=== PATIENT | female | born 1965 | race Caucasian/White ===

== ENCOUNTER → 2017-01-02 | Outpatient (CLI) | payer MEDICARE, MEDICAID ==
[~2017-01-02] MED LIST: *MAYHAVE; /AUGM875TA; /CIPR75TA PO; /FEXO18TA; /INSU7030; /INSUREG; /LINE60TA; ACET1TAB17 PO; ACET50TA PO; ACET65TA; ACET65TA PO; ALBU83IN INH; ALBUTEROL NEBULIZER NEB; ATEN50TA2; AUG875 PO; BACTDSTA PO; BUDE150T; BUDE300T; CEFA1INJ5 IV; CEFA1VL IM; CETI10TA PO; CHRO200T3 PO; CINN500C9 PO; CLAR1TAB2 PO; CLAR5CHW; DIFL150T PO; DIGO0.25 PO; DOXY-278 PO; EUCECRE2 TOP; EUCELOT2; FISH100035 PO; FISH120012 PO; FISH5CAP PO; FLEEENE4 PR; GLUC1000; GLUC1000 OR; HEPA100I14 IV; HEPA100PFS IV; HEPARIN FLUSH; HUMUINJ; HUMUINJ SC; HUMULIN R; HUMULIN R SC; INSULANT; INSULANT SC; INSULIN 70/30; INSULIN LANTUS; INSURSD SC; INVANZ; IPRA2IN INH; ISOS30BRAN; JANUVIA; LANO0.252 PO; LANO250T15 PO; LASI40TA; LASI40TA OR; LASI40TA PO; LASI80TA; LEVAQUIN; LEVO750T PO; LISI2.5T3 PO; LISI20TA5; LISI40TA; LISI40TA OR; LOPR1TAB6 PO; LORA10TA2 PO; LORATADINE; LOTRCRE; MAG400TA PO; MAGN400T5 PO; MAGN500T2 PO; METO50TA2 PO; METO50TA7 PO; MILKSUS PO; MULTTAB4 PO; NOVO70VL; NOVOLIN N; NOVOLOG100 MG/ML; NYST1000 PO; PAIN325T PO; POTA20TA2 OR; PRAD150C PO; ROCE1INJ4 IV; SALI0.9I2 IV; SIMV80TA OR; TENO25TA PO; TENORETIC 50/25 OR; TRIA1CR TOP; TYLE325T5 PO; VICO5TAB; VITA100066 PO; VITA1CAP40 PO; VITMTA PO; ZEST1TAB4 PO; ZETI10TA; ZITH250T; ZOCO40TA PO; ZOCO80TA; ZYVO100T PO; ZYVOX PO; januvia
[2017-01-02 14:13] LABS: ALBUMIN/GLOBULIN RATIO 1.18 (1.00-1.93); BILIRUBIN,TOTAL 0.6 MG/DL (0.2-1.0); CALCIUM LEVEL 9.6 MG/DL (8.5-10.1); CREATININE FOR GFR 1.2 MG/DL (0.55-1.02); DIGOXIN LEVEL 1.1 NG/ML (0.5-2.0); GLOMERULAR FILTRATION RATE 50.4 (>51); POTASSIUM SERUM 3.8 MEQ/L (3.5-5.1); TOTAL PROTEIN 7.4 GM/DL (6.4-8.2)
== END ==
LOC: M WUC 08:32
PROVIDERS: ATTEND Nurse Practitioner Adult Health
DX: E11.42 Type 2 diabetes mellitus with diabetic polyneuropathy (principal); I10 Essential (primary) hypertension; E78.2 Mixed hyperlipidemia; E55.9 Vitamin D deficiency, unspecified
CPT/HCPCS: 36415; 80053; 80061; 80162; 82043; 82306; 83036; G0463

== ENCOUNTER → 2017-07-28 | Outpatient (REF) | payer OTHER ==
[2017-07-28 12:11] LABS: ESTIMATED AVERAGE GLUCOSE 183 MG/DL (60-110)
[2017-07-28 12:14] LABS: TOTAL 25(OH) VITAMIN D 26.7 NG/ML (30.0-100.0)
[2017-07-28 12:25] LABS: ALBUMIN 3.4 GM/DL (3.2-5.2); ALKALINE PHOSPHATASE 118 U/L (45-117); ALT/SGPT 41 U/L (12-78); ANION GAP 8 MEQ/L (8-16); AST/SGOT 25 U/L (7-37); BILIRUBIN,TOTAL 0.5 MG/DL (0.2-1.0); BLOOD UREA NITROGEN 18 MG/DL (7-18); CALCIUM LEVEL 9.5 MG/DL (8.5-10.1); CARBON DIOXIDE LEVEL 30 MEQ/L (21-32); CHLORIDE LEVEL 103 MEQ/L (98-107); CHOLESTEROL LEVEL 143 MG/DL (<200); CHOLESTEROL RISK RATIO 3.763 (<5); GLOMERULAR FILTRATION RATE > 60.0 (>51); GLUCOSE, FASTING 113 MG/DL (70-100); HDL CHOLESTEROL 38 MG/DL (>40); NON-HDL-C 105 MG/DL; SODIUM LEVEL 141 MEQ/L (136-145); TOTAL PROTEIN 6.5 GM/DL (6.4-8.2); TRIGLYCERIDES LEVEL 210 MG/DL (<150)
[2017-07-28 12:32] LABS: MAU/CREAT RATIO 67.7 MCG/MG (0.0-30.0)
== END ==
LOC: M SFHCPLAZ 08:06
DX: E11.42 Type 2 diabetes mellitus with diabetic polyneuropathy (principal); E55.9 Vitamin D deficiency, unspecified; E78.2 Mixed hyperlipidemia; I48.0 Paroxysmal atrial fibrillation; E83.42 Hypomagnesemia
CPT/HCPCS: 80162

== ENCOUNTER 2017-08-27 13:53 | Inpatient (IN) | payer MEDICARE, MEDICAID, OTHER ==
[2017-08-27 16:12] LABS: BASO # 0.1 10^3/uL (0.0-0.2); BASO % 0.3 % (0.0-1.0); EOS # 0.1 10^3/uL (0.0-0.50); EOS % 0.3 % (0.0-3.0); HEMATOCRIT 37.3 % (36.0-47.0); HEMOGLOBIN 12.6 g/dl (12.0-16.0); IMMATURE GRANULOCYTE % 0.9 % (0-3.0); LYMPH # 2.1 10^3/uL (1.5-4.5); LYMPH % 7.3 % (24.0-44.0); MEAN CORPUSCULAR HEMOGLOBIN 28.6 pg (27.0-33.0); MEAN CORPUSCULAR HGB CONC 33.8 g/dl (32.0-36.5); MEAN CORPUSCULAR VOLUME 84.6 fl (80.0-96.0); MONO # 1.6 10^3/uL (0.0-0.8); MONO % 5.5 % (0.0-5.0); NEUTROPHILS % 85.7 % (36.0-66.0); PLATELET COUNT, AUTOMATED 289 10^3/uL (150-450); RED BLOOD COUNT 4.41 10^6/uL (4.00-5.40); RED CELL DISTRIBUTION WIDTH 13.9 % (11.5-14.5); WHITE BLOOD COUNT 29.4 10^3/uL (4.0-10.0)
[2017-08-27 16:22] LABS: INR 1.08; PROTHROMBIN TIME 14.2 SECONDS (12.4-14.5)
[2017-08-27 16:23] LABS: PARTIAL THROMBOPLASTIN TIME 21.5 SECONDS (26.8-37.9)
[2017-08-27 16:31] LABS: NEUTROPHILS # 25.2 10^3/uL (1.8-7.7); POSITIVE DIFF POS FLAG
[2017-08-27] MEDS: ONDANSETRON 4MG/2ML VIAL (J2405) IV (16:31)
[2017-08-27] MEDS: NS 1,000 ML IV (16:32)
[2017-08-27 16:35] LABS: ANION GAP 8 MEQ/L (8-16); BLOOD UREA NITROGEN 15 MG/DL (7-18); CALCIUM LEVEL 9.3 MG/DL (8.5-10.1); CARBON DIOXIDE LEVEL 28 MEQ/L (21-32); CHLORIDE LEVEL 100 MEQ/L (98-107); CREATININE FOR GFR 1.06 MG/DL (0.55-1.30); GLUCOSE, FASTING 157 MG/DL (70-100); POTASSIUM SERUM 4.3 MEQ/L (3.5-5.1); SODIUM LEVEL 136 MEQ/L (136-145)
[2017-08-27 17:06] LABS: LACTIC ACID SEPSIS PROTOCOL 1.3 MMOL/L (0.4-2.0)
[2017-08-27 18:10] LABS: ERYTHROCYTE SEDIMENTATION RATE 64 mm/hr (0-30)
[2017-08-27] MEDS: LIDOCAINE W/EPINEPHRINE 1% 20ML VIAL SC (19:45)
[2017-08-27] MEDS: HumaLOG INSULIN (NovoLOG) PER UNIT SC (21:00)
[2017-08-27] MEDS: SENOKOT S TAB PO (21:00)
[2017-08-27] MEDS: MEROPENEM INJ 1 GM in APPROPRIATE DILUENT 1 EA IV (21:44)
[2017-08-27] MEDS: LINEZOLID 600 MG in APPROPRIATE DILUENT 1 EA IV (22:39)
[2017-08-27] MEDS ORDERED: GLUCAGON FOR INJ 1 MG VIAL (J1610) SC (23:00)
[2017-08-27] MEDS ORDERED: DEXTROSE 50% 50 ML SYRINGE IV (23:00)
[2017-08-27] MEDS ORDERED: ACETAMINOPHEN TAB 650MG DOSE (2X325MG) PO (23:00)
[2017-08-27] MEDS ORDERED: GLUCOSE 4 GM CHEW TABLET PO (23:00)
[2017-08-27] MEDS ORDERED: PERCOCET 5MG/325MG TAB PO (23:00)
[2017-08-27] MEDS ORDERED: ONDANSETRON 4MG/2ML VIAL (J2405) IV (23:00)
[2017-08-27 23:32] LABS: BEDSIDE GLUCOSE 173 MG/DL (70-105)
[2017-08-28] MEDS: DABIGATRAN ETEXILATE 75 MG CAP (PRADAXA) PO ×3 (00:10→21:40)
[2017-08-28] MEDS: METOPROLOL TART 50 MG TAB PO ×3 (00:11→21:40)
[2017-08-28] MEDS: SIMVASTATIN 40 MG TAB PO ×2 (00:11→21:40)
[2017-08-28] MEDS: LEVEMIR (INSULIN DETEMIR) 1 UNITS/0.01ML SC ×3 (00:12→21:43)
[2017-08-28 06:20] LABS: HEMATOCRIT 32.7 % (36.0-47.0); MEAN CORPUSCULAR HEMOGLOBIN 28.3 pg (27.0-33.0); MEAN CORPUSCULAR HGB CONC 33.6 g/dl (32.0-36.5); MEAN CORPUSCULAR VOLUME 84.1 fl (80.0-96.0); PLATELET COUNT, AUTOMATED 242 10^3/uL (150-450); RED BLOOD COUNT 3.89 10^6/uL (4.00-5.40); WHITE BLOOD COUNT 21.4 10^3/uL (4.0-10.0)
[2017-08-28 06:37] LABS: ANION GAP 6 MEQ/L (8-16); BLOOD UREA NITROGEN 14 MG/DL (7-18); CALCIUM LEVEL 8.5 MG/DL (8.5-10.1); CARBON DIOXIDE LEVEL 27 MEQ/L (21-32); CHLORIDE LEVEL 103 MEQ/L (98-107); CREATININE FOR GFR 0.85 MG/DL (0.55-1.30); GLOMERULAR FILTRATION RATE > 60.0 (>51); GLUCOSE, FASTING 125 MG/DL (70-100); MAGNESIUM LEVEL 2.2 MG/DL (1.8-2.4); POTASSIUM SERUM 3.6 MEQ/L (3.5-5.1); SODIUM LEVEL 136 MEQ/L (136-145)
[2017-08-28] MEDS: SENOKOT S TAB PO ×2 (09:00→21:00)
[2017-08-28] MEDS: CEFTAROLINE FOSAMIL 600 MG in D5W MINI-BAG PLUS 50 ML IV ×2 (09:43→21:42)
[2017-08-28] MEDS: HumaLOG INSULIN (NovoLOG) PER UNIT SC ×4 (09:44→21:00)
[2017-08-28] MEDS: VITAMIN D 1,000 INTERNATIONAL UNITS TABLET PO (09:44)
[2017-08-28] MEDS: LISINOPRIL *2.5 MG* TAB PO (09:45)
[2017-08-28] MEDS: MULTIVITAMINS/MINERALS THERAP 1 TAB PO (09:46)
[2017-08-28] MEDS: DIGOXIN 0.25 MG TAB PO (09:46)
[2017-08-28 12:14] LABS: BEDSIDE GLUCOSE 137 MG/DL (70-105)
[2017-08-28 21:03] LABS: BEDSIDE GLUCOSE 98 MG/DL (70-105)
[2017-08-28 21:04] LABS: BEDSIDE GLUCOSE 126 MG/DL (70-105)
[2017-08-29 06:01] LABS: HEMATOCRIT 33.1 % (36.0-47.0); HEMOGLOBIN 10.9 g/dl (12.0-15.5); MEAN CORPUSCULAR HEMOGLOBIN 27.9 pg (27.0-33.0); MEAN CORPUSCULAR HGB CONC 32.9 g/dl (32.0-36.5); MEAN CORPUSCULAR VOLUME 84.7 fl (80.0-96.0); PLATELET COUNT, AUTOMATED 252 10^3/uL (150-450); RED BLOOD COUNT 3.91 10^6/uL (4.00-5.40); RED CELL DISTRIBUTION WIDTH 13.9 % (11.5-14.5); WHITE BLOOD COUNT 17.4 10^3/uL (4.0-10.0)
[2017-08-29 06:24] LABS: ANION GAP 4 MEQ/L (8-16); BLOOD UREA NITROGEN 15 MG/DL (7-18); CALCIUM LEVEL 8.5 MG/DL (8.5-10.1); CARBON DIOXIDE LEVEL 29 MEQ/L (21-32); CHLORIDE LEVEL 106 MEQ/L (98-107); CREATININE FOR GFR 0.83 MG/DL (0.55-1.30); GLOMERULAR FILTRATION RATE > 60.0 (>51); GLUCOSE, FASTING 91 MG/DL (70-100); MAGNESIUM LEVEL 2.2 MG/DL (1.8-2.4); POTASSIUM SERUM 3.7 MEQ/L (3.5-5.1); SODIUM LEVEL 139 MEQ/L (136-145)
[2017-08-29] MEDS: HumaLOG INSULIN (NovoLOG) PER UNIT SC ×4 (07:30→21:00)
[2017-08-29] MEDS: SENOKOT S TAB PO ×2 (09:00→22:05)
[2017-08-29] MEDS: DIGOXIN 0.25 MG TAB PO (09:38)
[2017-08-29] MEDS: METOPROLOL TART 50 MG TAB PO ×2 (09:39→22:04)
[2017-08-29] MEDS: LISINOPRIL *2.5 MG* TAB PO (09:39)
[2017-08-29] MEDS: LEVEMIR (INSULIN DETEMIR) 1 UNITS/0.01ML SC ×2 (09:40→22:06)
[2017-08-29] MEDS: MULTIVITAMINS/MINERALS THERAP 1 TAB PO (09:40)
[2017-08-29] MEDS: DABIGATRAN ETEXILATE 75 MG CAP (PRADAXA) PO ×2 (09:40→22:03)
[2017-08-29] MEDS: VITAMIN D 1,000 INTERNATIONAL UNITS TABLET PO (09:40)
[2017-08-29] MEDS: CEFTAROLINE FOSAMIL 600 MG in D5W MINI-BAG PLUS 50 ML IV ×2 (09:40→22:04)
[2017-08-29] MEDS: SIMVASTATIN 40 MG TAB PO (22:03)
[2017-08-30 06:15] LABS: HEMATOCRIT 35.5 % (36.0-47.0); HEMOGLOBIN 11.6 g/dl (12.0-15.5); MEAN CORPUSCULAR HEMOGLOBIN 27.8 pg (27.0-33.0); MEAN CORPUSCULAR HGB CONC 32.7 g/dl (32.0-36.5); MEAN CORPUSCULAR VOLUME 84.9 fl (80.0-96.0); PLATELET COUNT, AUTOMATED 324 10^3/uL (150-450); RED BLOOD COUNT 4.18 10^6/uL (4.00-5.40); RED CELL DISTRIBUTION WIDTH 13.8 % (11.5-14.5); WHITE BLOOD COUNT 21.5 10^3/uL (4.0-10.0)
[2017-08-30 06:28] LABS: ANION GAP 6 MEQ/L (8-16); BLOOD UREA NITROGEN 18 MG/DL (7-18); CARBON DIOXIDE LEVEL 27 MEQ/L (21-32); CHLORIDE LEVEL 105 MEQ/L (98-107); CREATININE FOR GFR 0.86 MG/DL (0.55-1.30); GLOMERULAR FILTRATION RATE > 60.0 (>51); GLUCOSE, FASTING 90 MG/DL (70-100); MAGNESIUM LEVEL 2.2 MG/DL (1.8-2.4); POTASSIUM SERUM 3.9 MEQ/L (3.5-5.1); SODIUM LEVEL 138 MEQ/L (136-145)
[2017-08-30] MEDS: HumaLOG INSULIN (NovoLOG) PER UNIT SC ×4 (07:30→21:00)
[2017-08-30 08:45] LABS: BEDSIDE GLUCOSE 133 MG/DL (70-105)
[2017-08-30 08:45] LABS: BEDSIDE GLUCOSE 103 MG/DL (70-105)
[2017-08-30 08:45] LABS: BEDSIDE GLUCOSE 106 MG/DL (70-105)
[2017-08-30] MEDS: LEVEMIR (INSULIN DETEMIR) 1 UNITS/0.01ML SC ×2 (11:00→21:55)
[2017-08-30] MEDS: MULTIVITAMINS/MINERALS THERAP 1 TAB PO (11:01)
[2017-08-30] MEDS: LISINOPRIL *2.5 MG* TAB PO (11:01)
[2017-08-30] MEDS: METOPROLOL TART 50 MG TAB PO ×2 (11:01→21:55)
[2017-08-30] MEDS: SENOKOT S TAB PO ×2 (11:02→21:00)
[2017-08-30] MEDS: DABIGATRAN ETEXILATE 75 MG CAP (PRADAXA) PO ×2 (11:02→21:56)
[2017-08-30] MEDS: VITAMIN D 1,000 INTERNATIONAL UNITS TABLET PO (11:02)
[2017-08-30] MEDS: DIGOXIN 0.25 MG TAB PO (11:03)
[2017-08-30] MEDS: CEFTAROLINE FOSAMIL 600 MG in D5W MINI-BAG PLUS 50 ML IV ×2 (11:03→21:56)
[2017-08-30] MEDS: LIDOCAINE 1% MDV 20ML VIAL SC (11:15)
[2017-08-30 11:36] LABS: BEDSIDE GLUCOSE 125 MG/DL (70-105)
[2017-08-30] MEDS: SIMVASTATIN 40 MG TAB PO (21:55)
[2017-08-31 06:22] LABS: HEMATOCRIT 34.2 % (36.0-47.0); MEAN CORPUSCULAR HEMOGLOBIN 27.4 pg (27.0-33.0); MEAN CORPUSCULAR HGB CONC 32.2 g/dl (32.0-36.5); MEAN CORPUSCULAR VOLUME 85.3 fl (80.0-96.0); PLATELET COUNT, AUTOMATED 323 10^3/uL (150-450); RED BLOOD COUNT 4.01 10^6/uL (4.00-5.40); RED CELL DISTRIBUTION WIDTH 13.9 % (11.5-14.5); WHITE BLOOD COUNT 18.4 10^3/uL (4.0-10.0)
[2017-08-31 06:41] LABS: ANION GAP 4 MEQ/L (8-16); BLOOD UREA NITROGEN 16 MG/DL (7-18); C REACTIVE PROTEIN QUANTITATIV 8.72 MG/DL (0.00-0.30); CALCIUM LEVEL 8.9 MG/DL (8.5-10.1); CARBON DIOXIDE LEVEL 27 MEQ/L (21-32); CHLORIDE LEVEL 108 MEQ/L (98-107); CREATININE FOR GFR 0.85 MG/DL (0.55-1.30); GLOMERULAR FILTRATION RATE > 60.0 (>51); GLUCOSE, FASTING 74 MG/DL (70-100); MAGNESIUM LEVEL 2.3 MG/DL (1.8-2.4); POTASSIUM SERUM 4.2 MEQ/L (3.5-5.1); SODIUM LEVEL 139 MEQ/L (136-145)
[2017-08-31] MEDS: HumaLOG INSULIN (NovoLOG) PER UNIT SC ×4 (07:30→20:52)
[2017-08-31] MEDS: VITAMIN D 1,000 INTERNATIONAL UNITS TABLET PO (08:35)
[2017-08-31] MEDS: DIGOXIN 0.25 MG TAB PO (08:35)
[2017-08-31] MEDS: DABIGATRAN ETEXILATE 75 MG CAP (PRADAXA) PO ×2 (08:35→21:53)
[2017-08-31] MEDS: MULTIVITAMINS/MINERALS THERAP 1 TAB PO (08:35)
[2017-08-31] MEDS: LISINOPRIL *2.5 MG* TAB PO (08:36)
[2017-08-31] MEDS: METOPROLOL TART 50 MG TAB PO ×2 (08:36→21:53)
[2017-08-31] MEDS: LEVEMIR (INSULIN DETEMIR) 1 UNITS/0.01ML SC ×2 (08:37→21:52)
[2017-08-31] MEDS: CEFTAROLINE FOSAMIL 600 MG in D5W MINI-BAG PLUS 50 ML IV ×2 (08:37→21:52)
[2017-08-31] MEDS: SENOKOT S TAB PO ×2 (08:37→21:00)
[2017-08-31 11:50] LABS: BEDSIDE GLUCOSE 104 MG/DL (70-105)
[2017-08-31 11:50] LABS: BEDSIDE GLUCOSE 103 MG/DL (70-105)
[2017-08-31 12:35] LABS: BEDSIDE GLUCOSE 89 MG/DL (70-105)
[2017-08-31 17:24] LABS: BEDSIDE GLUCOSE 87 MG/DL (70-105)
[2017-08-31] MEDS: FUROSEMIDE 40 MG TAB PO (21:53)
[2017-08-31] MEDS: SIMVASTATIN 40 MG TAB PO (21:53)
[2017-09-01 06:04] LABS: HEMATOCRIT 36.4 % (36.0-47.0); HEMOGLOBIN 11.8 g/dl (12.0-15.5); MEAN CORPUSCULAR HEMOGLOBIN 28.1 pg (27.0-33.0); MEAN CORPUSCULAR HGB CONC 32.4 g/dl (32.0-36.5); MEAN CORPUSCULAR VOLUME 86.7 fl (80.0-96.0); PLATELET COUNT, AUTOMATED 336 10^3/uL (150-450); RED CELL DISTRIBUTION WIDTH 13.9 % (11.5-14.5); WHITE BLOOD COUNT 18.6 10^3/uL (4.0-10.0)
[2017-09-01 06:20] LABS: ANION GAP 8 MEQ/L (8-16); BLOOD UREA NITROGEN 16 MG/DL (7-18); C REACTIVE PROTEIN QUANTITATIV 5.83 MG/DL (0.00-0.30); CALCIUM LEVEL 8.9 MG/DL (8.5-10.1); CARBON DIOXIDE LEVEL 28 MEQ/L (21-32); CHLORIDE LEVEL 106 MEQ/L (98-107); CREATININE FOR GFR 0.86 MG/DL (0.55-1.30); GLOMERULAR FILTRATION RATE > 60.0 (>51); GLUCOSE, FASTING 75 MG/DL (70-100); MAGNESIUM LEVEL 2.1 MG/DL (1.8-2.4); POTASSIUM SERUM 3.8 MEQ/L (3.5-5.1); SODIUM LEVEL 142 MEQ/L (136-145)
[2017-09-01] MEDS: HumaLOG INSULIN (NovoLOG) PER UNIT SC ×4 (07:56→21:00)
[2017-09-01] MEDS: LISINOPRIL *2.5 MG* TAB PO (09:54)
[2017-09-01] MEDS: CEFTAROLINE FOSAMIL 600 MG in D5W MINI-BAG PLUS 50 ML IV (09:54)
[2017-09-01] MEDS: DABIGATRAN ETEXILATE 75 MG CAP (PRADAXA) PO ×2 (09:54→21:48)
[2017-09-01] MEDS: SENOKOT S TAB PO ×2 (09:55→21:48)
[2017-09-01] MEDS: VITAMIN D 1,000 INTERNATIONAL UNITS TABLET PO (09:55)
[2017-09-01] MEDS: DIGOXIN 0.25 MG TAB PO (09:56)
[2017-09-01] MEDS: METOPROLOL TART 50 MG TAB PO ×2 (09:56→21:51)
[2017-09-01] MEDS: MULTIVITAMINS/MINERALS THERAP 1 TAB PO (09:56)
[2017-09-01] MEDS: LEVEMIR (INSULIN DETEMIR) 1 UNITS/0.01ML SC ×2 (09:57→21:50)
[2017-09-01 13:10] LABS: BEDSIDE GLUCOSE 108 MG/DL (70-105)
[2017-09-01 13:11] LABS: BEDSIDE GLUCOSE 102 MG/DL (70-105)
[2017-09-01 19:52] LABS: BEDSIDE GLUCOSE 110 MG/DL (70-105)
[2017-09-01] MEDS ORDERED: CEFAZOLIN SOD 2 GM in APPROPRIATE DILUENT 1 EA IV (21:00)
[2017-09-01] MEDS: SIMVASTATIN 40 MG TAB PO (21:48)
[2017-09-01] MEDS: FUROSEMIDE 40 MG TAB PO (21:48)
[2017-09-02 07:08] LABS: BEDSIDE GLUCOSE 114 MG/DL (70-105)
[2017-09-02 07:17] LABS: HEMATOCRIT 36.3 % (36.0-47.0); HEMOGLOBIN 11.9 g/dl (12.0-15.5); MEAN CORPUSCULAR HEMOGLOBIN 28.1 pg (27.0-33.0); MEAN CORPUSCULAR HGB CONC 32.8 g/dl (32.0-36.5); MEAN CORPUSCULAR VOLUME 85.8 fl (80.0-96.0); PLATELET COUNT, AUTOMATED 344 10^3/uL (150-450); RED BLOOD COUNT 4.23 10^6/uL (4.00-5.40); RED CELL DISTRIBUTION WIDTH 13.8 % (11.5-14.5); WHITE BLOOD COUNT 17.5 10^3/uL (4.0-10.0)
[2017-09-02 07:26] LABS: ANION GAP 5 MEQ/L (8-16); BLOOD UREA NITROGEN 19 MG/DL (7-18); C REACTIVE PROTEIN QUANTITATIV 3.55 MG/DL (0.00-0.30); CALCIUM LEVEL 8.6 MG/DL (8.5-10.1); CARBON DIOXIDE LEVEL 30 MEQ/L (21-32); CHLORIDE LEVEL 106 MEQ/L (98-107); GLOMERULAR FILTRATION RATE > 60.0 (>51); GLUCOSE, FASTING 134 MG/DL (70-100); SODIUM LEVEL 141 MEQ/L (136-145)
[2017-09-02] MEDS: HumaLOG INSULIN (NovoLOG) PER UNIT SC ×4 (09:12→21:00)
[2017-09-02] MEDS: LEVEMIR (INSULIN DETEMIR) 1 UNITS/0.01ML SC ×2 (09:13→21:34)
[2017-09-02] MEDS: SENOKOT S TAB PO ×2 (09:13→21:36)
[2017-09-02] MEDS: VITAMIN D 1,000 INTERNATIONAL UNITS TABLET PO (09:13)
[2017-09-02] MEDS: DIGOXIN 0.25 MG TAB PO (09:15)
[2017-09-02] MEDS: METOPROLOL TART 50 MG TAB PO ×2 (09:18→21:36)
[2017-09-02] MEDS: DABIGATRAN ETEXILATE 75 MG CAP (PRADAXA) PO ×2 (09:19→21:34)
[2017-09-02] MEDS: LISINOPRIL *2.5 MG* TAB PO (09:19)
[2017-09-02] MEDS: MULTIVITAMINS/MINERALS THERAP 1 TAB PO (09:19)
[2017-09-02 11:58] LABS: BEDSIDE GLUCOSE 127 MG/DL (70-105)
[2017-09-02 19:26] LABS: DIGOXIN LEVEL 0.8 NG/ML (0.5-2.0)
[2017-09-02 20:42] LABS: BEDSIDE GLUCOSE 100 MG/DL (70-105)
[2017-09-02] MEDS: FUROSEMIDE 40 MG TAB PO (21:35)
[2017-09-02] MEDS: SIMVASTATIN 40 MG TAB PO (21:35)
[2017-09-03 06:07] LABS: HEMATOCRIT 37.1 % (36.0-47.0); MEAN CORPUSCULAR HEMOGLOBIN 27.5 pg (27.0-33.0); MEAN CORPUSCULAR HGB CONC 32.3 g/dl (32.0-36.5); MEAN CORPUSCULAR VOLUME 84.9 fl (80.0-96.0); PLATELET COUNT, AUTOMATED 347 10^3/uL (150-450); RED BLOOD COUNT 4.37 10^6/uL (4.00-5.40); RED CELL DISTRIBUTION WIDTH 13.7 % (11.5-14.5)
[2017-09-03 06:22] LABS: ANION GAP 7 MEQ/L (8-16); BLOOD UREA NITROGEN 19 MG/DL (7-18); CARBON DIOXIDE LEVEL 30 MEQ/L (21-32); CHLORIDE LEVEL 104 MEQ/L (98-107); CREATININE FOR GFR 0.91 MG/DL (0.55-1.30); GLOMERULAR FILTRATION RATE > 60.0 (>51); GLUCOSE, FASTING 108 MG/DL (70-100); MAGNESIUM LEVEL 2.2 MG/DL (1.8-2.4); POTASSIUM SERUM 3.9 MEQ/L (3.5-5.1); SODIUM LEVEL 141 MEQ/L (136-145)
[2017-09-03 07:43] LABS: C REACTIVE PROTEIN QUANTITATIV 2.37 MG/DL (0.00-0.30)
[2017-09-03 09:00] LABS: REASON FOR REVIEW WBC/LEUKEMIA/BLAST; SLIDE REVIEW Report; SOURCE PERIPHERAL SMEAR
[2017-09-03] MEDS: SENOKOT S TAB PO ×2 (09:59→20:56)
[2017-09-03] MEDS: VITAMIN D 1,000 INTERNATIONAL UNITS TABLET PO (09:59)
[2017-09-03] MEDS: MULTIVITAMINS/MINERALS THERAP 1 TAB PO (09:59)
[2017-09-03] MEDS: LEVEMIR (INSULIN DETEMIR) 1 UNITS/0.01ML SC ×2 (10:00→20:57)
[2017-09-03] MEDS: HumaLOG INSULIN (NovoLOG) PER UNIT SC ×4 (10:00→21:00)
[2017-09-03] MEDS: DABIGATRAN ETEXILATE 75 MG CAP (PRADAXA) PO ×2 (10:00→20:56)
[2017-09-03] MEDS: LISINOPRIL *2.5 MG* TAB PO (10:03)
[2017-09-03] MEDS: DIGOXIN 0.25 MG TAB PO (10:04)
[2017-09-03] MEDS: METOPROLOL TART 50 MG TAB PO ×2 (10:04→20:56)
[2017-09-03] MEDS: CEPHALEXIN 500 MG CAP PO ×2 (18:38→20:56)
[2017-09-03] MEDS: FUROSEMIDE 40 MG TAB PO (20:56)
[2017-09-03] MEDS: SIMVASTATIN 40 MG TAB PO (20:56)
[2017-09-04 05:59] LABS: HEMATOCRIT 36.4 % (36.0-47.0); MEAN CORPUSCULAR HEMOGLOBIN 28.2 pg (27.0-33.0); MEAN CORPUSCULAR VOLUME 85.4 fl (80.0-96.0); PLATELET COUNT, AUTOMATED 302 10^3/uL (150-450); RED BLOOD COUNT 4.26 10^6/uL (4.00-5.40); RED CELL DISTRIBUTION WIDTH 13.7 % (11.5-14.5); WHITE BLOOD COUNT 17.6 10^3/uL (4.0-10.0)
[2017-09-04 06:30] LABS: C REACTIVE PROTEIN QUANTITATIV 1.92 MG/DL (0.00-0.30)
[2017-09-04] MEDS: HumaLOG INSULIN (NovoLOG) PER UNIT SC (07:26)
[2017-09-04] MEDS: DIGOXIN 0.25 MG TAB PO (07:40)
[2017-09-04] MEDS: LEVEMIR (INSULIN DETEMIR) 1 UNITS/0.01ML SC (07:40)
[2017-09-04] MEDS: DABIGATRAN ETEXILATE 75 MG CAP (PRADAXA) PO (07:40)
[2017-09-04] MEDS: MULTIVITAMINS/MINERALS THERAP 1 TAB PO (07:41)
[2017-09-04] MEDS: LISINOPRIL *2.5 MG* TAB PO (07:41)
[2017-09-04] MEDS: SENOKOT S TAB PO (07:42)
[2017-09-04] MEDS: METOPROLOL TART 50 MG TAB PO (07:42)
[2017-09-04] MEDS: CEPHALEXIN 500 MG CAP PO (07:42)
[2017-09-04] MEDS: VITAMIN D 1,000 INTERNATIONAL UNITS TABLET PO (07:43)
[2017-09-04 13:16] LABS: BEDSIDE GLUCOSE 124 MG/DL (70-105)
[2017-09-04 13:16] LABS: BEDSIDE GLUCOSE 115 MG/DL (70-105)
[2017-09-04 13:17] LABS: BEDSIDE GLUCOSE 124 MG/DL (70-105)
[2017-09-04 13:17] LABS: BEDSIDE GLUCOSE 138 MG/DL (70-105)
[2017-09-04 13:17] LABS: BEDSIDE GLUCOSE 119 MG/DL (70-105)
== END 2017-09-04 11:06 | disposition home or self-care (01) | DRG 623 ==
LOC: M ED 13:53 → M ED INP 22:51 → M MSPAV 23:54
PROC: 0H9MXZZ Drainage of Right Foot Skin, External Approach (ICD-10-PCS; principal; 2017-08-27)
PROC: 0JBQ0ZZ Excision of Right Foot Subcutaneous Tissue and Fascia, Open Approach (ICD-10-PCS; 2017-08-28)
DX: E11.621 Type 2 diabetes mellitus with foot ulcer (principal); L03.115 Cellulitis of right lower limb; Z68.41 Body mass index [BMI] 40.0-44.9, adult; L02.611 Cutaneous abscess of right foot; E66.01 Morbid (severe) obesity due to excess calories; I10 Essential (primary) hypertension; B96.4 Proteus (mirabilis) (morganii) as the cause of diseases classified elsewhere; E78.5 Hyperlipidemia, unspecified; L97.519 Non-pressure chronic ulcer of other part of right foot with unspecified severity; B95.1 Streptococcus, group B, as the cause of diseases classified elsewhere; E11.40 Type 2 diabetes mellitus with diabetic neuropathy, unspecified; I48.91 Unspecified atrial fibrillation; E11.610 Type 2 diabetes mellitus with diabetic neuropathic arthropathy; Z86.14 Personal history of Methicillin resistant Staphylococcus aureus infection; Z88.0 Allergy status to penicillin; Z88.1 Allergy status to other antibiotic agents; Z88.8 Allergy status to other drugs, medicaments and biological substances; Z87.891 Personal history of nicotine dependence; Z79.01 Long term (current) use of anticoagulants; Z79.4 Long term (current) use of insulin; Z79.899 Other long term (current) drug therapy

== ENCOUNTER → 2017-09-25 | Outpatient (REF) | payer MEDICARE ==
[2017-09-25 11:42] LABS: BASO # 0.1 10^3/uL (0.0-0.2); BASO % 0.4 % (0.0-1.0); EOS # 0.2 10^3/uL (0.0-0.50); EOS % 1.5 % (0.0-3.0); HEMATOCRIT 43.7 % (36.0-47.0); HEMOGLOBIN 14.4 g/dl (12.0-15.5); IMMATURE GRANULOCYTE % 0.5 % (0-3.0); LYMPH # 3.1 10^3/uL (1.5-4.5); LYMPH % 21.3 % (24.0-44.0); MEAN CORPUSCULAR HEMOGLOBIN 28.5 pg (27.0-33.0); MEAN CORPUSCULAR VOLUME 86.5 fl (80.0-96.0); NEUTROPHILS % 69.3 % (36.0-66.0); PLATELET COUNT, AUTOMATED 282 10^3/uL (150-450); RED BLOOD COUNT 5.05 10^6/uL (4.00-5.40); RED CELL DISTRIBUTION WIDTH 14.4 % (11.5-14.5); WHITE BLOOD COUNT 14.4 10^3/uL (4.0-10.0)
[2017-09-25 11:52] LABS: C REACTIVE PROTEIN QUANTITATIV 1.22 MG/DL (0.00-0.30)
[2017-09-25 12:19] LABS: ALBUMIN 3.9 GM/DL (3.2-5.2); ALKALINE PHOSPHATASE 133 U/L (45-117); ALT/SGPT 26 U/L (12-78); ANION GAP 8 MEQ/L (8-16); AST/SGOT 12 U/L (7-37); BILIRUBIN,TOTAL 0.8 MG/DL (0.2-1.0); BLOOD UREA NITROGEN 15 MG/DL (7-18); CALCIUM LEVEL 9.8 MG/DL (8.5-10.1); CARBON DIOXIDE LEVEL 30 MEQ/L (21-32); CHLORIDE LEVEL 102 MEQ/L (98-107); CHOLESTEROL LEVEL 156 MG/DL (<200); CREATININE FOR GFR 1.12 MG/DL (0.55-1.30); GLOMERULAR FILTRATION RATE 54.4 (>51); GLUCOSE, FASTING 139 MG/DL (70-100); HDL CHOLESTEROL 39 MG/DL (>40); LDL CHOLESTEROL 77.8 MG/DL (<100); NON-HDL-C 117 MG/DL; POTASSIUM SERUM 4.6 MEQ/L (3.5-5.1); SODIUM LEVEL 140 MEQ/L (136-145); TOTAL PROTEIN 7.8 GM/DL (6.4-8.2); TRIGLYCERIDES LEVEL 196 MG/DL (<150)
[2017-09-25 13:28] LABS: ERYTHROCYTE SEDIMENTATION RATE 47 mm/hr (0-30)
== END ==
LOC: M SFHCPLAZ 08:24
DX: E11.42 Type 2 diabetes mellitus with diabetic polyneuropathy (principal); E78.2 Mixed hyperlipidemia
CPT/HCPCS: 80053

== ENCOUNTER → 2018-03-31 | Outpatient (REF) | payer MEDICARE, MEDICAID ==
[2018-03-31 12:05] LABS: ESTIMATED AVERAGE GLUCOSE 235 MG/DL (60-110); HEMOGLOBIN A1c 9.8 %
[2018-03-31 12:44] LABS: ALBUMIN 3.8 GM/DL (3.2-5.2); ALBUMIN/GLOBULIN RATIO 1.09 (1.00-1.93); ALKALINE PHOSPHATASE 119 U/L (45-117); ALT/SGPT 25 U/L (12-78); ANION GAP 14 MEQ/L (8-16); AST/SGOT 12 U/L (7-37); BILIRUBIN,TOTAL 0.4 MG/DL (0.2-1.0); BLOOD UREA NITROGEN 21 MG/DL (7-18); CALCIUM LEVEL 9.4 MG/DL (8.5-10.1); CARBON DIOXIDE LEVEL 23 MEQ/L (21-32); CHLORIDE LEVEL 99 MEQ/L (98-107); CREATININE FOR GFR 1.22 MG/DL (0.55-1.30); GLOMERULAR FILTRATION RATE 49.1 (>51); GLUCOSE, FASTING 290 MG/DL (70-100); POTASSIUM SERUM 3.8 MEQ/L (3.5-5.1); SODIUM LEVEL 136 MEQ/L (136-145); TOTAL PROTEIN 7.3 GM/DL (6.4-8.2)
== END ==
LOC: M SFHCPLAZ 08:19
DX: E11.42 Type 2 diabetes mellitus with diabetic polyneuropathy (principal)
CPT/HCPCS: 80053

== ENCOUNTER → 2018-08-10 | Outpatient (REF) | payer MEDICARE, MEDICAID ==
[~2018-08-10] MED LIST changes: -ACET1TAB17 PO; +ACET1TAB55 PO; +CEPH500C PO; -DOXY-278 PO; +DOXY-350 PO; +FISH1000 PO; -LASI40TA PO; +LASI40TA9 PO; -LISI2.5T3 PO; +LISI2.5T5 PO; +MAGN1TAB25 PO; -ROCE1INJ4 IV; +ROCE1INJ6 IV; -VITA1CAP40 PO; +VITA50005 PO; -ZYVO100T PO; +ZYVO1TAB PO
[2018-08-10 11:36] LABS: ALBUMIN 3.7 GM/DL (3.2-5.2); ALT/SGPT 35 U/L (12-78); BILIRUBIN,TOTAL 0.5 MG/DL (0.2-1.0); BLOOD UREA NITROGEN 14 MG/DL (7-18); CARBON DIOXIDE LEVEL 31 MEQ/L (21-32); CHLORIDE LEVEL 103 MEQ/L (98-107); CHOLESTEROL LEVEL 167 MG/DL (<200); CHOLESTEROL RISK RATIO 3.976 (<5); CREATININE FOR GFR 0.99 MG/DL (0.55-1.30); DIGOXIN LEVEL 0.7 NG/ML (0.5-2.0); GLOMERULAR FILTRATION RATE > 60.0 (>51); GLUCOSE, FASTING 140 MG/DL (70-100); HDL CHOLESTEROL 42 MG/DL (>40); LDL CHOLESTEROL 75 MG/DL (<100); MAGNESIUM LEVEL 1.7 MG/DL (1.8-2.4); NON-HDL-C 125 MG/DL; POTASSIUM SERUM 4.1 MEQ/L (3.5-5.1); SODIUM LEVEL 142 MEQ/L (136-145); TOTAL PROTEIN 7.2 GM/DL (6.4-8.2); TRIGLYCERIDES LEVEL 248 MG/DL (<150)
[2018-08-10 12:14] LABS: HEMOGLOBIN A1c 7.6 %
[2018-08-10 13:40] LABS: MAU/CREAT RATIO 77.7 MCG/MG (0.0-30.0)
== END ==
LOC: M SFHCPLAZ 08:14
PROVIDERS: ATTEND Nurse Practitioner Adult Health
DX: E11.42 Type 2 diabetes mellitus with diabetic polyneuropathy (principal); E78.2 Mixed hyperlipidemia; E55.9 Vitamin D deficiency, unspecified; I48.0 Paroxysmal atrial fibrillation; K76.0 Fatty (change of) liver, not elsewhere classified; E66.01 Morbid (severe) obesity due to excess calories; Z68.41 Body mass index [BMI] 40.0-44.9, adult; F32.9 Major depressive disorder, single episode, unspecified; L30.9 Dermatitis, unspecified; L91.9 Hypertrophic disorder of the skin, unspecified

== ENCOUNTER → 2018-08-10 | Outpatient (CLI) | payer MEDICAID, MEDICARE ==
--- NOTE | 2018-08-10 12:56 | REPMRS ---
Patient History The patient states she has not had a clinical breast exam in over a year. Family history of ovarian cancer at age 46 and breast cancer at age 46 in sister. No Hormone Replacement Therapy Digital Woman Screen Mammo: August 10, 2018 - Exam #: [id number] Bilateral CC and MLO view(s) were taken. Technologist: Sera Rojas, Technologist No prior studies available for comparison. FINDINGS: There are scattered fibroglandular densities. There is a mild amount of residual fibroglandular tissue which is fairly symmetric. There is no dominant mass, architectural distortion, or clustered microcalcification suggestive of malignancy. There are benign arterial calcifications noted. There is a benign appearing intramammary node in the upper outer quadrant of the left breast. 3-D tomosynthesis shows no additional findings. Assessment: BI-RADS/ACR category 2 mammogram. Benign Findings. Recommendation Routine screening mammogram in 1 year (for women over age 40). This mammogram was interpreted with the aid of an FDA-approved computer-aided dectection system. A. Negative x-ray reports should not delay biopsy if a dominant or clinically suspicious mass is present. B. Four to eight percent of cancers are not identified by mammography. C. Adenosis and dense breast may obscure an underlying neoplasm. Electronically Signed By: Vargas Milligan MD 08/10/18 [id number]
== END ==
LOC: M WHC 09:10
PROVIDERS: ATTEND Nurse Practitioner Adult Health
DX: Z12.31 Encounter for screening mammogram for malignant neoplasm of breast (principal); R92.1 Mammographic calcification found on diagnostic imaging of breast; N63.21 Unspecified lump in the left breast, upper outer quadrant; Z80.41 Family history of malignant neoplasm of ovary; Z80.3 Family history of malignant neoplasm of breast; E11.42 Type 2 diabetes mellitus with diabetic polyneuropathy; E78.2 Mixed hyperlipidemia; E55.9 Vitamin D deficiency, unspecified; I48.0 Paroxysmal atrial fibrillation; K76.0 Fatty (change of) liver, not elsewhere classified; E66.01 Morbid (severe) obesity due to excess calories; Z68.41 Body mass index [BMI] 40.0-44.9, adult; F32.9 Major depressive disorder, single episode, unspecified; L30.9 Dermatitis, unspecified; L91.9 Hypertrophic disorder of the skin, unspecified
CPT/HCPCS: 36415; 77063; 77067; 80053; 80061; 80162; 82043; 82652; 83036; 83735; G0463

== ENCOUNTER 2018-09-24 17:51 | Emergency (ER) | payer MEDICARE ==
[~2018-09-24] VITALS: Ht 165.1 cm; Wt 113.6 kg
[~2018-09-24 17:51] MED LIST changes: -/INSU7030; -/INSUREG; -/LINE60TA; -ACET50TA PO; -BACTDSTA PO; +CEFA1INJ19 IM; -CEFA1VL IM; +LISI-1046 PO; -LISI2.5T5 PO; -MAGN1TAB25 PO; +MAGN1TAB26 PO; +MAPA500T17 PO; +NOVO1INJ2; +NOVO1INJ4; +PRAD150C6 PO; +SULF1TAB23 PO; +TRIA0.1C60 TOP; -TRIA1CR TOP; +ZYVO100T
[2018-09-24] MEDS ORDERED: PERC5TAB12 PO (19:05)
[2018-09-24 19:12] VITALS: BP 150/65
[2018-09-24] MEDS ORDERED: PERCOCET 5MG/325MG TAB PO ONE (19:30)
--- NOTE | 2018-09-24 19:43 | REP ---
REASON: Pain after trauma. There is a marked comminuted proximal humeral fracture with an inferior glenohumeral subluxation. Chronic changes seen involving the AC joint. Electronically Signed by Filipe Wong DO 09/24/2018 07:52 P
== END 2018-09-24 19:36 | disposition home or self-care (01) ==
LOC: M ED 17:51 → EDBD 17:51 → M ED 19:36
DX: S42.232A 3-part fracture of surgical neck of left humerus, initial encounter for closed fracture (principal); S43.082A Other subluxation of left shoulder joint, initial encounter; W19.XXXA Unspecified fall, initial encounter; Y92.098 Other place in other non-institutional residence as the place of occurrence of the external cause; E11.9 Type 2 diabetes mellitus without complications; I11.9 Hypertensive heart disease without heart failure; Z88.1 Allergy status to other antibiotic agents; Z88.0 Allergy status to penicillin; Z88.8 Allergy status to other drugs, medicaments and biological substances; Z79.899 Other long term (current) drug therapy; Z79.4 Long term (current) use of insulin; Z79.02 Long term (current) use of antithrombotics/antiplatelets

== ENCOUNTER → 2018-10-08 | Outpatient (CLI) | payer MEDICARE ==
[~2018-10-08] MED LIST changes: +PERC5TAB12 PO
--- NOTE | 2018-10-08 10:26 | REP ---
CT STUDY LEFT SHOULDER WITHOUT CONTRAST: HISTORY: Fracture of the proximal left humerus. Comparison radiographs are from September 24, 2018. TECHNIQUE: Helical scanning is acquired. 3 mm axial images are reformatted. Coronal and sagittal MPR images are generated and 3D surface rendered images are generated and viewed rotationally. CT FINDINGS: Digital lab scientist radiograph demonstrates the displaced comminuted and angulated fracture of the proximal humerus on the left. CT images show no evidence of scapular fracture or clavicular fracture. There is moderate osteoarthritic hypertrophy at the AC joint with fragmented spurring superiorly. This is old however. On oblique multiplanar re-formation images, the principal fracture plane is seen through the surgical neck region. There is impaction and medial displacement of the distal fragment. The medial displacement measures 20 mm. The impaction measures approximately 9 mm. There is significant comminution of the proximal fragment with a fracture across the greater tuberosity. The articular margin of the humeral head is largely intact. Significant comminution is noted at the lateral aspect of the humeral head. Axial and soft-tissue window settings demonstrate persistent soft tissue swelling and evidence of soft tissue callus mineralization consistent with early healing. The remainder of the humeral diaphysis appears intact as visualized. No rib fracture is seen. The visualized left lung is clear. IMPRESSION: Comminuted, impacted surgical neck and humeral head fracture left humerus. AC joint osteoarthritis. Electronically Signed by Louie Madrigal MD 10/08/2018 01:06 P
== END ==
LOC: M RAD 07:33
PROVIDERS: ATTEND Orthopaedic Surgery Sports Medicine
DX: S42.355A Nondisplaced comminuted fracture of shaft of humerus, left arm, initial encounter for closed fracture (principal); X58.XXXA Exposure to other specified factors, initial encounter; Y92.89 Other specified places as the place of occurrence of the external cause

== ENCOUNTER → 2019-04-23 | Outpatient (REF) | payer MEDICARE ==
[2019-04-23 12:37] LABS: CHOLESTEROL RISK RATIO 3.644 (<5); DIGOXIN LEVEL 0.6 NG/ML (0.5-2.0); THYROID STIMULATING HORMONE 2.03 uIU/ML (0.358-3.740); TOTAL 25(OH) VITAMIN D 32.6 NG/ML (30.0-100.0)
[2019-04-23 12:42] LABS: HEMOGLOBIN A1c 6.6 %
[2019-04-23 12:50] LABS: MAU/CREAT RATIO 37.6 MCG/MG (0.0-30.0)
== END ==
LOC: M SFHCPLAZ 08:44
PROVIDERS: ATTEND Nurse Practitioner Adult Health
DX: E11.42 Type 2 diabetes mellitus with diabetic polyneuropathy (principal); E78.2 Mixed hyperlipidemia; I48.0 Paroxysmal atrial fibrillation; E55.9 Vitamin D deficiency, unspecified
CPT/HCPCS: 36415; 80061; 80162; 82043; 82306; 83036; 84443; 90682; G0008; G0463

== ENCOUNTER → 2020-01-10 | Outpatient (REF) | payer MEDICARE ==
[~2020-01-10] MED LIST changes: +CHRO1TAB5 PO; -CHRO200T3 PO; -LISI-1046 PO; +LISI2.5T2 PO
[2020-02-23 14:16] LABS: ALBUMIN 3.8 GM/DL (3.2-5.2); BILIRUBIN,TOTAL 0.2 MG/DL (0.2-1.0); CALCIUM LEVEL 9.2 MG/DL (8.5-10.1); CHOLESTEROL RISK RATIO 3.555 (<5); CREATININE FOR GFR 1.32 MG/DL (0.55-1.30); DIGOXIN LEVEL 0.8 NG/ML (0.5-2.0); GLOMERULAR FILTRATION RATE 44.5 (>51); MAGNESIUM LEVEL 1.9 MG/DL (1.8-2.4); POTASSIUM SERUM 4.4 MEQ/L (3.5-5.1); TOTAL PROTEIN 7.2 GM/DL (6.4-8.2)
[2020-02-23 14:17] LABS: HEMOGLOBIN A1c 6.7 %
== END ==
LOC: M SFHCPLAZ 10:24
PROVIDERS: ATTEND Nurse Practitioner Adult Health
DX: E11.42 Type 2 diabetes mellitus with diabetic polyneuropathy (principal); I48.0 Paroxysmal atrial fibrillation; E78.2 Mixed hyperlipidemia; E55.9 Vitamin D deficiency, unspecified; Z79.899 Other long term (current) drug therapy
CPT/HCPCS: 36415; 80053; 80061; 80162; 83036; 83735; G0463

== ENCOUNTER → 2020-11-07 | Outpatient (REF) | payer MEDICARE ==
[2020-11-07 10:31] LABS: HEMATOCRIT 45.9 % (36.0-47.0); HEMOGLOBIN 14.9 g/dl (12.0-15.5); MEAN CORPUSCULAR HEMOGLOBIN 28.1 pg (27.0-33.0); MEAN CORPUSCULAR HGB CONC 32.5 g/dl (32.0-36.5); MEAN CORPUSCULAR VOLUME 86.6 fl (80.0-96.0); PLATELET COUNT, AUTOMATED 238 10^3/uL (150-450); WHITE BLOOD COUNT 16.8 10^3/uL (4.0-10.0)
[2020-11-07 11:55] LABS: ALBUMIN 3.9 GM/DL (3.2-5.2); ALT/SGPT 31 U/L (12-78); BILIRUBIN,TOTAL 0.5 MG/DL (0.2-1.0); BLOOD UREA NITROGEN 22 MG/DL (7-18); CALCIUM LEVEL 9.8 MG/DL (8.5-10.1); CARBON DIOXIDE LEVEL 29 MEQ/L (21-32); CHLORIDE LEVEL 104 MEQ/L (98-107); CHOLESTEROL LEVEL 130 MG/DL (<200); CREATININE FOR GFR 1.01 MG/DL (0.55-1.30); DIGOXIN LEVEL 1.1 NG/ML (0.5-2.0); GLOMERULAR FILTRATION RATE > 60.0 (>51); GLUCOSE, FASTING 96 MG/DL (70-100); HDL CHOLESTEROL 41 MG/DL (>40); LDL CHOLESTEROL 64 MG/DL (<100); NON-HDL-C 89 MG/DL; SODIUM LEVEL 141 MEQ/L (136-145); TOTAL 25(OH) VITAMIN D 39.5 NG/ML (30.0-100.0); TOTAL PROTEIN 7.5 GM/DL (6.4-8.2); TRIGLYCERIDES LEVEL 124 MG/DL (<150)
[2020-11-07 13:20] LABS: HEMOGLOBIN A1c 5.6 %
== END ==
LOC: M SFHCPLAZ 07:57
PROVIDERS: ATTEND Nurse Practitioner Adult Health
DX: E11.42 Type 2 diabetes mellitus with diabetic polyneuropathy (principal); I10 Essential (primary) hypertension; I48.0 Paroxysmal atrial fibrillation; E55.9 Vitamin D deficiency, unspecified; E78.2 Mixed hyperlipidemia
CPT/HCPCS: 36415; 80053; 80061; 80162; 82306; 83036; 84443; 85027; G0463

== ENCOUNTER → 2021-09-27 | Outpatient (CLI) | payer MEDICARE ==
[~2021-09-27] MED LIST changes: -LISI2.5T2 PO; +LISI2.5T9 PO
[2021-09-27 17:28] LABS: HEMOGLOBIN A1c 5.5 %
[2021-09-27 17:39] LABS: HEMATOCRIT 41.1 % (36.0-47.0); HEMOGLOBIN 13.3 g/dl (12.0-15.5); MEAN CORPUSCULAR HEMOGLOBIN 29.2 pg (27.0-33.0); MEAN CORPUSCULAR HGB CONC 32.4 g/dl (32.0-36.5); MEAN CORPUSCULAR VOLUME 90.1 fl (80.0-96.0); PLATELET COUNT, AUTOMATED 208 10^3/uL (150-450); RED BLOOD COUNT 4.56 10^6/uL (4.00-5.40); WHITE BLOOD COUNT 15.9 10^3/uL (4.0-10.0)
[2021-09-27 17:50] LABS: ALBUMIN 3.8 GM/DL (3.2-5.2); ALT/SGPT 24 U/L (12-78); BILIRUBIN,TOTAL 0.5 MG/DL (0.2-1.0); BLOOD UREA NITROGEN 23 MG/DL (7-18); CALCIUM LEVEL 9.5 MG/DL (8.5-10.1); CARBON DIOXIDE LEVEL 28 MEQ/L (21-32); CHLORIDE LEVEL 106 MEQ/L (98-107); CHOLESTEROL LEVEL 149 MG/DL (<200); CHOLESTEROL RISK RATIO 3.547 (<5); CREATININE FOR GFR 0.89 MG/DL (0.55-1.30); DIGOXIN LEVEL 1.2 NG/ML (0.5-2.0); GLOMERULAR FILTRATION RATE > 60.0 (>51); GLUCOSE, FASTING 107 MG/DL (70-100); HDL CHOLESTEROL 42 MG/DL (>40); LDL CHOLESTEROL 74 MG/DL (<100); NON-HDL-C 107 MG/DL; POTASSIUM SERUM 4.4 MEQ/L (3.5-5.1); SODIUM LEVEL 140 MEQ/L (136-145); TOTAL 25(OH) VITAMIN D 38.6 NG/ML (30.0-100.0); TOTAL PROTEIN 6.9 GM/DL (6.4-8.2); TRIGLYCERIDES LEVEL 166 MG/DL (<150)
== END ==
LOC: M PLALAB 15:03
PROVIDERS: ATTEND Nurse Practitioner Adult Health
DX: E11.42 Type 2 diabetes mellitus with diabetic polyneuropathy (principal); E55.9 Vitamin D deficiency, unspecified; I48.0 Paroxysmal atrial fibrillation; I10 Essential (primary) hypertension

== ENCOUNTER → 2022-06-06 | Outpatient (CLI) | payer MEDICARE ==
[~2022-06-06] MED LIST changes: +ALBU2.5V10 INH; -DOXY-350 PO; +DOXY-444 PO; +HEPA100I12 IV; -HEPA100I14 IV; +SIMV-254 PO; -ZOCO40TA PO
[2022-06-06 13:46] LABS: HEMATOCRIT 46.6 % (36.0-47.0); HEMOGLOBIN 15.5 g/dl (12.0-15.5); MEAN CORPUSCULAR HEMOGLOBIN 28.7 pg (27.0-33.0); MEAN CORPUSCULAR HGB CONC 33.3 g/dl (32.0-36.5); MEAN CORPUSCULAR VOLUME 86.3 fl (80.0-96.0); PLATELET COUNT, AUTOMATED 228 10^3/uL (150-450); WHITE BLOOD COUNT 17.1 10^3/uL (4.0-10.0)
[2022-06-06 14:12] LABS: BILIRUBIN,TOTAL 0.5 MG/DL (0.3-1.2); CALCIUM LEVEL 10.4 MG/DL (8.5-10.1); CHOLESTEROL RISK RATIO 2.7 (<5); CREATININE FOR GFR 1.28 MG/DL (0.55-1.30); DIGOXIN LEVEL 1.4 NG/ML (0.8-2.0); GLOMERULAR FILTRATION RATE 45.8 (>51); HDL CHOLESTEROL 39.6 MG/DL (>40); LDL CHOLESTEROL 39.6 MG/DL (<100); POTASSIUM SERUM 3.9 MMOL/L (3.5-5.1)
[2022-06-06 14:16] LABS: THYROID STIMULATING HORMONE 3.051 uIU/ML (0.55-4.78); TOTAL 25(OH) VITAMIN D 52.6 NG/ML (20.0-100.0)
[2022-06-06 14:21] LABS: HEMOGLOBIN A1c 5.8 % (4.0-6.0)
== END ==
LOC: M PLALAB 10:53
PROVIDERS: ATTEND Nurse Practitioner Adult Health
DX: E11.42 Type 2 diabetes mellitus with diabetic polyneuropathy (principal); E55.9 Vitamin D deficiency, unspecified; I48.0 Paroxysmal atrial fibrillation; E78.2 Mixed hyperlipidemia

== ENCOUNTER → 2023-01-09 | Outpatient (CLI) | payer MEDICARE, OTHER ==
[~2023-01-09] MED LIST changes: -HEPA100I12 IV; +[UNRECOGNIZED DRUG - CODE] IV
[2023-01-09 13:59] LABS: HEMATOCRIT 42.9 % (36.0-47.0); MEAN CORPUSCULAR HEMOGLOBIN 28.6 pg (27.0-33.0); MEAN CORPUSCULAR HGB CONC 32.6 g/dl (32.0-36.5); MEAN CORPUSCULAR VOLUME 87.7 fl (80.0-96.0); PLATELET COUNT, AUTOMATED 247 10^3/uL (150-450); RED BLOOD COUNT 4.89 10^6/uL (4.00-5.40); WHITE BLOOD COUNT 16.3 10^3/uL (4.0-10.0)
[2023-01-09 14:15] LABS: HEMOGLOBIN A1c 7.4 % (4.0-6.0)
[2023-01-09 14:35] LABS: ALKALINE PHOSPHATASE 93 U/L (46-116); ALT/SGPT 15 U/L (7.0-40); AST/SGOT 9 U/L (<34); BILIRUBIN,TOTAL 0.6 MG/DL (0.3-1.2); BLOOD UREA NITROGEN 23 MG/DL (9-23); CALCIUM LEVEL 9.9 MG/DL (8.5-10.1); CARBON DIOXIDE LEVEL 28 MMOL/L (20-31); CHLORIDE LEVEL 103 MMOL/L (98-107); CHOLESTEROL LEVEL 142 MG/DL (<200); DIGOXIN LEVEL 1.3 NG/ML (0.8-2.0); GLOMERULAR FILTRATION RATE > 60.0 (>51); GLUCOSE, FASTING 147 MG/DL (60-100); HDL CHOLESTEROL 39.4 MG/DL (>40); LDL CHOLESTEROL 71.6 MG/DL (<100); NON-HDL-C 102.6 MG/DL; POTASSIUM SERUM 4.2 MMOL/L (3.5-5.1); SODIUM LEVEL 141 MMOL/L (136-145); THYROID STIMULATING HORMONE 1.632 uIU/ML (0.55-4.78); TOTAL 25(OH) VITAMIN D 48.8 NG/ML (20.0-100.0); TRIGLYCERIDES LEVEL 155 MG/DL (<150)
== END ==
LOC: M PLALAB 10:58
PROVIDERS: ATTEND Nurse Practitioner Adult Health
DX: E11.42 Type 2 diabetes mellitus with diabetic polyneuropathy (principal); I10 Essential (primary) hypertension; I48.0 Paroxysmal atrial fibrillation; E78.2 Mixed hyperlipidemia; E55.9 Vitamin D deficiency, unspecified

== ENCOUNTER → 2023-06-03 | Outpatient (CLI) | payer OTHER ==
[~2023-06-03] MED LIST changes: +INSU100V19 SC; -INSURSD SC
[2023-06-03 11:05] LABS: HEMATOCRIT 42.8 % (36.0-47.0); HEMOGLOBIN 13.9 g/dl (12.0-15.5); MEAN CORPUSCULAR HEMOGLOBIN 28.6 pg (27.0-33.0); MEAN CORPUSCULAR HGB CONC 32.5 g/dl (32.0-36.5); MEAN CORPUSCULAR VOLUME 88.1 fl (80.0-96.0); PLATELET COUNT, AUTOMATED 273 10^3/uL (150-450); RED BLOOD COUNT 4.86 10^6/uL (4.00-5.40); WHITE BLOOD COUNT 14.7 10^3/uL (4.0-10.0)
[2023-06-03 11:30] LABS: DIGOXIN LEVEL 1.2 NG/ML (0.8-2.0)
[2023-06-03 11:31] LABS: ALBUMIN 3.7 G/DL (3.2-5.2); ALKALINE PHOSPHATASE 93 U/L (46-116); ALT/SGPT 21 U/L (7.0-40); AST/SGOT 13 U/L (<34); BILIRUBIN,TOTAL 0.5 MG/DL (0.3-1.2); BLOOD UREA NITROGEN 25 MG/DL (9-23); CARBON DIOXIDE LEVEL 28 MMOL/L (20-31); CHLORIDE LEVEL 104 MMOL/L (98-107); CHOLESTEROL LEVEL 148 MG/DL (<200); CHOLESTEROL RISK RATIO 3.97 (<5); CREATININE FOR GFR 0.94 MG/DL (0.55-1.30); GLOMERULAR FILTRATION RATE > 60.0 (>51); GLUCOSE, FASTING 127 MG/DL (60-100); HDL CHOLESTEROL 37.2 MG/DL (>40); LDL CHOLESTEROL 80.4 MG/DL (<100); NON-HDL-C 110.8 MG/DL; POTASSIUM SERUM 4.6 MMOL/L (3.5-5.1); SODIUM LEVEL 141 MMOL/L (136-145); THYROID STIMULATING HORMONE 2.252 uIU/ML (0.55-4.78); TOTAL 25(OH) VITAMIN D 86.6 NG/ML (20.0-100.0); TOTAL PROTEIN 6.9 G/DL (5.7-8.2); TRIGLYCERIDES LEVEL 152 MG/DL (<150)
[2023-06-03 12:04] LABS: HEMOGLOBIN A1c 6.1 % (4.0-6.0)
== END ==
LOC: M PLALAB 08:40
PROVIDERS: ATTEND Nurse Practitioner Adult Health
DX: E11.42 Type 2 diabetes mellitus with diabetic polyneuropathy (principal); I48.0 Paroxysmal atrial fibrillation; E78.2 Mixed hyperlipidemia; E55.9 Vitamin D deficiency, unspecified

== ENCOUNTER → 2023-09-10 | Outpatient (CLI) | payer OTHER, MEDICAID | LOC: M CARPUL 08:59 | PROVIDERS: ATTEND Nurse Practitioner Adult Health | DX: I48.0 Paroxysmal atrial fibrillation (principal); I08.0 Rheumatic disorders of both mitral and aortic valves ==

== ENCOUNTER → 2023-09-25 | Outpatient (CLI) | payer OTHER, MEDICAID ==
[2023-09-25 15:17] LABS: HEMOGLOBIN 14.6 g/dl (12.0-15.5); MEAN CORPUSCULAR HEMOGLOBIN 28.7 pg (27.0-33.0); MEAN CORPUSCULAR HGB CONC 33.2 g/dl (32.0-36.5); MEAN CORPUSCULAR VOLUME 86.6 fl (80.0-96.0); PLATELET COUNT, AUTOMATED 235 10^3/uL (150-450); RED BLOOD COUNT 5.08 10^6/uL (4.00-5.40); WHITE BLOOD COUNT 16.5 10^3/uL (4.0-10.0)
[2023-09-25 15:40] LABS: HEMOGLOBIN A1c 5.7 % (4.0-6.0)
[2023-09-25 15:43] LABS: IRON (FE) 12 UG/DL (50-170)
[2023-09-25 15:44] LABS: ALBUMIN 3.9 G/DL (3.2-5.2); ALKALINE PHOSPHATASE 99 U/L (46-116); ALT/SGPT 39 U/L (7.0-40); AST/SGOT 24 U/L (<34); BILIRUBIN,TOTAL 0.5 MG/DL (0.3-1.2); BLOOD UREA NITROGEN 18 MG/DL (9-23); CALCIUM LEVEL 10.1 MG/DL (8.5-10.1); CARBON DIOXIDE LEVEL 30 MMOL/L (20-31); CHLORIDE LEVEL 99 MMOL/L (98-107); CREATININE FOR GFR 0.91 MG/DL (0.55-1.30); GLOMERULAR FILTRATION RATE > 60.0 (>51); GLUCOSE, FASTING 140 MG/DL (60-100); PERCENT SATURATION 5.3 % (13.2-45.0); SODIUM LEVEL 138 MMOL/L (136-145); TOTAL IRON BINDING CAPACITY 227 UG/DL (250-425); TOTAL PROTEIN 6.9 G/DL (5.7-8.2)
[2023-09-25 15:45] LABS: FERRITIN 74.1 NG/ML (7.3-270.7)
== END ==
LOC: M PLALAB 11:41
PROVIDERS: ATTEND Nurse Practitioner Adult Health
DX: I48.0 Paroxysmal atrial fibrillation (principal); E11.42 Type 2 diabetes mellitus with diabetic polyneuropathy

== ENCOUNTER → 2024-07-05 | Outpatient (CLI) | payer MEDICARE, MEDICAID ==
[~2024-07-05] MED LIST changes: +DOXY-440 PO; -DOXY-444 PO
[2024-07-05 16:01] LABS: HEMATOCRIT 40.8 % (36.0-47.0); HEMOGLOBIN 13.2 g/dl (12.0-15.5); MEAN CORPUSCULAR HEMOGLOBIN 29.9 pg (27.0-33.0); MEAN CORPUSCULAR HGB CONC 32.4 g/dl (32.0-36.5); MEAN CORPUSCULAR VOLUME 92.5 fl (80.0-96.0); PLATELET COUNT, AUTOMATED 258 10^3/uL (150-450); RED BLOOD COUNT 4.41 10^6/uL (4.00-5.40)
[2024-07-05 16:08] LABS: HEMOGLOBIN A1c 6.9 % (4.0-6.0)
[2024-07-05 16:21] LABS: LIPASE 28 U/L (12-53)
[2024-07-05 16:23] LABS: ALBUMIN 3.4 G/DL (3.2-5.2); ALKALINE PHOSPHATASE 98 U/L (35-104); ALT/SGPT 22 U/L (7.0-40); AMYLASE 43 U/L (30-118); AST/SGOT 12 U/L (<34); BILIRUBIN,TOTAL 0.4 MG/DL (0.3-1.2); BLOOD UREA NITROGEN 27 MG/DL (9-23); CARBON DIOXIDE LEVEL 28 MMOL/L (20-31); CHLORIDE LEVEL 105 MMOL/L (98-107); CHOLESTEROL LEVEL 158 MG/DL (<200); CHOLESTEROL RISK RATIO 4.23 (<5); CREATININE FOR GFR 0.97 MG/DL (0.55-1.30); DIGOXIN LEVEL 0.8 NG/ML (0.8-2.0); GLOMERULAR FILTRATION RATE > 60.0 (>51); GLUCOSE, FASTING 124 MG/DL (60-100); HDL CHOLESTEROL 37.3 MG/DL (>40); LDL CHOLESTEROL 78.5 MG/DL (<100); NON-HDL-C 120.7 MG/DL; POTASSIUM SERUM 4.2 MMOL/L (3.5-5.1); SODIUM LEVEL 140 MMOL/L (136-145); TOTAL PROTEIN 6.8 G/DL (5.7-8.2); TRIGLYCERIDES LEVEL 211 MG/DL (<150)
[2024-07-05 16:24] LABS: FERRITIN 43.7 NG/ML (7.3-270.7); TOTAL 25(OH) VITAMIN D 66.4 NG/ML (20.0-100.0)
[2024-07-05 16:25] LABS: FREE T4 1.15 NG/DL (0.89-1.76); THYROID STIMULATING HORMONE 2.437 uIU/ML (0.55-4.78)
== END ==
LOC: M PLALAB 10:57
PROVIDERS: ATTEND Nurse Practitioner Adult Health
DX: I48.0 Paroxysmal atrial fibrillation (principal); E11.42 Type 2 diabetes mellitus with diabetic polyneuropathy; E78.5 Hyperlipidemia, unspecified; E55.9 Vitamin D deficiency, unspecified